=== PATIENT | male | born 1970 | race Caucasian/White ===

== ENCOUNTER 2019-05-05 11:08 | Emergency (ER) | payer OTHER, SELFPAY ==
[2019-05-05 11:17] VITALS: BP 118/82; PULSE 77; RESP 16; TEMP 36.2; O2SAT 99
[2019-05-05 11:28] VITALS: RESP 16
--- NOTE | 2019-05-05 11:48 | ED.GENADUL_ITS ---
Discharge Plan Disposition Patient Disposition: HOME Condition: Stable Discharge Details Chief Complaint: GenMedical Clinical Impression: Rectal bleeding, External hemorrhoid Primary Care Provider: Neil Montgomery ED Provider: Stephanie Lew Home Meds and New Rx's Prescriptions: Continued sertraline 50 mg tablet 50 mg PO DAILY Qty: 90 RF: 3 lidocaine HCl 3 % cream 1 applic TP QID PRN (Reason: pain) Qty: 85 RF: 1 docusate sodium [Stool Softener] 100 mg tablet 100 mg PO BID Qty: 30 RF: 1 No Action ibuprofen 200 mg Capsule 400 mg RF: 0 Discharge Instructions Instructions: Hemorrhoids (ED), Rectal Bleeding (ED), Hemorrhoidectomy (ED) Additional Instructions: Please return immediately to the emergency department if you develop any new or worsening symptoms or if you become otherwise concerned. It is extremely important that you have your procedure performed tomorrow as we discussed. You will be called with the time of procedure. Please do not eat or drink anything after midnight tonight. It is also extremely important that you call soon as possible to make an appointment to be seen in follow-up for this visit by your primary care doctor. Referrals: Nara Leal MD [ [facility] STAFF PHYSICIAN] - Neil Montgomery [Primary Care Provider] - Discharge Data Discharge Date/Time-TO BE ENTERED AT DEPARTURE: 05/05/19 13:20 Medical Decision Making Eddie Tijerina is a 49-year-old man with a history of alcohol abuse, hyperlipidemia who presented to the emergency department with rectal bleeding, apparently from long-standing hemorrhoid. Patient reporting pain at site of hemorrhoid over the past few days but bleeding has been painless. On exam patient is well and nontoxic appearing. No active rectal bleeding but bright red blood about the buttocks. 1 x 1 cm hemorrhoid, appears partially thrombosed. Concern for likely bleeding from hemorrhoid versus less likely other rectal bleeding. Plan for screening labs, IV. I discussed the patient with Dr. Nara Leal of surgery who will see the patient in the emergency department. Patient with no further bleeding in the emergency department. Patient seen by Dr. Leal of surgery, who plans hemorrhoidectomy as an outpatient tomorrow. Hemoglobin 13. Exam/history is not consistent with life-threatening active bleeding. Had a lengthy discussion with the patient regarding return to emergency department precautions, importance of outpatient follow-up with Dr. Leal for procedure tomorrow, and also with patient's PCP. Patient and his verbalized understanding the plan and were amenable. All questions were answered. Patient was discharged home with clear plan for outpatient follow-up. Medical Records Medical records reviewed: Yes I reviewed the patient's medical records. Lab Data Lab results reviewed: Yes I reviewed the patient's lab results. Labs: Laboratory Tests Range/Units 05/05/19 05/05/19 05/05/19 11:45 11:45 11:45 WBC (4.4-10.8) k/cumm 5.50 RBC (4.50-6.00) m/cumm 4.51 Hgb (13.5-17.5) g/dL 13.3 L Hct (40.0-50.0) % 39.6 L MCV (80-95) fL 87.8 MCH (27.0-33.0) pg 29.5 MCHC (32.0-36.0) g/dL 33.6 RDW (11.8-14.1) % 13.0 Plt Count (130-400) x1000/uL 253 MPV (8.0-11.0) fL 9.9 Immature Gran % 0.4 Neutrophils % 52.2 Lymphocytes % 32.5 Monocytes % 10.7 Eosinophils % 3.5 Basophils % 0.7 Absolute Neutrophils (1.2-6.7) k/cumm 2.87 Absolute Lymphocytes (1.2-3.4) k/cumm 1.79 Absolute Monocytes (0.11-0.7) k/cumm 0.59 Absolute Eosinophils (0.0-0.7) k/cumm 0.19 Absolute Basophils (0.0-0.2) k/cumm 0.04 PT (9.3-11.0) sec 9.8 INR (0.9-1.1) 1.0 Sodium (136-145) mmol/L 142 Potassium (3.5-5.1) mmol/L 3.6 Chloride (98-107) mmol/L 105 Carbon Dioxide (21.0-32.0) mmol/L 27.2 Anion Gap (3-11) mmol/L 9.8 BUN (7-18) mg/dL 15 Creatinine (0.70-1.30) mg/dL 1.14 Estimated GFR/1.73 m2 (mL/min/1.73m2) >= 60.00 Glucose (70-100) mg/dL 106 H Calcium (8.5-10.1) mg/dL 8.8 Total Bilirubin (0.2-1.0) mg/dL 0.4 AST (15-37) U/L 40 H ALT (16-63) U/L 44 Alkaline Phosphatase (46-116) U/L 66 Total Protein (6.4-8.2) g/dL 7.2 Albumin (3.4-5.0) g/dL 3.9 Patient ABO/Rh Antibody Screen Range/Units 05/05/19 11:45 WBC (4.4-10.8) k/cumm RBC (4.50-6.00) m/cumm Hgb (13.5-17.5) g/dL Hct (40.0-50.0) % MCV (80-95) fL MCH (27.0-33.0) pg MCHC (32.0-36.0) g/dL RDW (11.8-14.1) % Plt Count (130-400) x1000/uL MPV (8.0-11.0) fL Immature Gran % Neutrophils % Lymphocytes % Monocytes % Eosinophils % Basophils % Absolute Neutrophils (1.2-6.7) k/cumm Absolute Lymphocytes (1.2-3.4) k/cumm Absolute Monocytes (0.11-0.7) k/cumm Absolute Eosinophils (0.0-0.7) k/cumm Absolute Basophils (0.0-0.2) k/cumm PT (9.3-11.0) sec INR (0.9-1.1) Sodium (136-145) mmol/L Potassium (3.5-5.1) mmol/L Chloride (98-107) mmol/L Carbon Dioxide (21.0-32.0) mmol/L Anion Gap (3-11) mmol/L BUN (7-18) mg/dL Creatinine (0.70-1.30) mg/dL Estimated GFR/1.73 m2 (mL/min/1.73m2) Glucose (70-100) mg/dL Calcium (8.5-10.1) mg/dL Total Bilirubin (0.2-1.0) mg/dL AST (15-37) U/L ALT (16-63) U/L Alkaline Phosphatase (46-116) U/L Total Protein (6.4-8.2) g/dL Albumin (3.4-5.0) g/dL Patient ABO/Rh A Positive Antibody Screen Negative HPI General Mode of arrival: ambulatory . Date/Time Provider Initiated Documentation: 05/05/19 11:25 . Limitations to Documentation: no limitations . Information obtained by: patient, family, RN notes reviewed and old records reviewed . HPI Narrative: Eddie Tijerina is a 49 y/o man with history of hyperlipidemia, alcohol abuse presenting to the emergency department with rectal bleeding. Patient reports that he has had hemorrhoids since age 18. He has never had this evaluated by a physician. Patient reports he has not had rectal bleeding in the past until recent events. He reports that 2 days ago he was working outside when he had sudden onset painless bleeding apparently coming from his hemorrhoid. He states that bleeding was copious, soaked through his close, and he became very sweaty and lightheaded during the episode. Patient states I must of lost a quart of blood. Patient reports that the bleeding stopped, and he had no further bleeding yesterday. Patient reports that he was seated and eating at approximately 10 AM this morning when he felt sudden gush of blood, painless, again apparently from his hemorrhoid. Patient reports that over the past few days his hemorrhoid has been more painful than usual. Patient reports that bleeding is stopped. He has had no other bleeding. He has had no other pain. He has had mild diarrhea. No vomiting, no constipation, no rash, no weakness, no numbness. He takes no prescript and blood thinners but does take [id number] ibuprofen. Related Data Home Medications Medication Instructions Recorded Confirmed sertraline 50 mg tablet 50 mg PO DAILY #90 tab 04/18/19 05/06/19 docusate sodium 100 mg tablet 100 mg PO BID #30 tab 05/05/19 lidocaine HCl 3 % topical cream 1 applic TP QID PRN #85 gm 05/05/19 ibuprofen 400 mg 05/06/19 Previous Rx's Medication Instructions Recorded sertraline 50 mg tablet 50 mg PO DAILY #90 tab 04/18/19 docusate sodium 100 mg tablet 100 mg PO BID #30 tab 05/05/19 lidocaine HCl 3 % topical cream 1 applic TP QID PRN #85 gm 05/05/19 Allergies Allergy/AdvReac Type Severity Reaction Status Date / Time No Known Allergies Allergy Unverified 05/06/19 11:41 General Stated Complaint: GenMedical NEAL: 3 Review of Systems Review of Systems Narrative: Constitutional: denies fevers Eyes: denies eye pain ENT: denies facial pain, dental pain, sore throat Cardiovascular: denies chest pain Respiratory: denies SOB, cough GI: denies abdominal pain, vomiting, diarrhea, reports rectal bleeding : denies flank pain MSK: denies back pain, neck pain, arthralgias, myalgias Skin: denies rash Neuro: denies headaches, numbness, weakness PFSH Surgical History NEGATIVE STRESS TEST 11/02/17 Family History Mother , age 56 Cancer of neck Father , ACCIDENTAL at age 36. No problems noted. Maternal Grandfather , age 76 Stroke Heart disease Paternal Grandfather No problems noted. Son No problems noted. Daughter No problems noted. Son No problems noted. Social History Smoking/Tobacco Use Status: Current every day Tobacco Type: smokeless tobacco Smokeless tobacco user: chewing tobacco and snuff Quit status: considering quitting Second Hand Exposure: Yes Alcohol Intake: never Drug use: Never Substance use type: does not use Caregiver/Support person: Yes Household members: spouse and children Communication Needs: None Do you need help understanding health information?: Never current occupation: [employer] Pets and animals: Yes Pets and animals: cat(s) and dog(s) Sexually active: Yes Do you think of yourself as: straight/heterosexual Current gender identity: male What is your relationship status?: How often do you talk on the phone with friends or family?: once per week How often do you get together with friends or relatives?: once per week How often do you attend mandaeism or religion services?: decline to answer Do you belong to any clubs or organized social groups?: yes Panel score (0-1 are the most socially isolated patients): 2 What type of physical activity do you participate in: none Amaya/Mandaeism: Voodoo Special amaya needs: No Seatbelt use: always Helmet use: Yes Helmet use: always Drive intox or ride w/intox 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 Do you feel safe at home: Yes Do you feel safe in your relationship?: Yes Exam Narrative Exam Narrative: Constitutional: well and pzv-[id number]-xuahnlnak, pleasant, conversing normally HENT: head atraumatic/normocephalic/normal inspection, mucous membranes moist Eyes: conjunctiva normal, sclera normal, pupils 3mm b/l Neck: no stridor, normal ROM, trachea midline Resp: normal work of breathing, LCTAB Cardio: normal rate, normal rhythm, no murmur appreciated GI: abdomen soft, non-tender, non-distended, 1x1cm partially thrombosed hemorrhoid, no active bleeding Skin: warm, dry, normal color, no rash Neuro: alert, not altered, grossly non-focal, normal tone Ext: no edema, moving all extremities equally Psych: normal mood, normal affect, normal behavior Course Vital Signs Vital signs: Vital Signs Temperature 36.2 C L 05/05/19 11:17 Pulse 77 05/05/19 11:17 Respiratory Rate 16 05/05/19 11:17 Blood Pressure 118/82 05/05/19 11:17 Pulse Oximetry 99 05/05/19 11:17 Temperature 36.2 C L 05/05/19 11:17 Pulse 77 05/05/19 11:17 Respiratory Rate 16 05/05/19 11:28 Respiratory Effort 05/05/19 11:28 Respiratory Depth Normal 05/05/19 11:28 Respiratory Pattern Normal 05/05/19 11:28 Blood Pressure 118/82 05/05/19 11:17 Pulse Oximetry 99 05/05/19 11:17 Oxygen Delivery Method Room Air 05/05/19 11:17 Oxygen Flow Rate 0 05/05/19 11:17 Pain Level 6 05/05/19 11:17
[2019-05-05 12:00] LABS: Abs Immature Grans 0.02 k/cumm (0.0-0.09); Absolute Basophil Count 0.04 k/cumm (0.0-0.2); Absolute Eosinophil Count 0.19 k/cumm (0.0-0.7); Absolute Lymphocyte Count 1.79 k/cumm (1.2-3.4); Absolute Monocyte Count 0.59 k/cumm (0.11-0.7); Absolute Neutrophil Count 2.87 k/cumm (1.2-6.7); Basophils % 0.7; Eosinophils % 3.5; HCT 39.6 % (40.0-50.0); HGB 13.3 g/dL (13.5-17.5); Immature Grans % 0.4; Lymphocytes % 32.5; Mean Corp. HGB Concentration 33.6 g/dL (32.0-36.0); Mean Corpuscular Hemoglobin 29.5 pg (27.0-33.0); Mean Corpuscular Volume 87.8 fL (80-95); Mean Platelet Volume 9.9 fL (8.0-11.0); Monocytes % 10.7; Neutrophils % 52.2; Platelet Count 253 x1000/uL (130-400); RBC 4.51 m/cumm (4.50-6.00)
[2019-05-05 12:26] LABS: ALT 44 U/L (16-63); AST 40 U/L (15-37); Albumin 3.9 g/dL (3.4-5.0); Alkaline Phosphatase 66 U/L (46-116); Anion Gap 9.8 mmol/L (3-11); BUN 15 mg/dL (7-18); Bilirubin, Total 0.4 mg/dL (0.2-1.0); CO2 27.2 mmol/L (21.0-32.0); CREATININE 1.14 mg/dL (0.70-1.30); Calcium 8.8 mg/dL (8.5-10.1); Chloride 105 mmol/L (98-107); Glucose 106 mg/dL (70-100); Potassium 3.6 mmol/L (3.5-5.1); Prothrombin Time 9.8 sec (9.3-11.0); Sodium 142 mmol/L (136-145); Total Protein 7.2 g/dL (6.4-8.2)
--- NOTE | 2019-05-05 13:01 | W.SURGCON ---
Date of service: 05/05/19 Time of Service: 13:01 Assessment and Plan Assessment and plan (1) External hemorrhoid, thrombosed: Status: Acute Assessment and plan: The patient has had two episodes of significant bleeding and is at risk having further bleeding. He also had a chronic prolapsing internal hemorrhoid. I advised hemorrhoidectomy. The procedure and risks of infection, bleeding, wound healing problems, pain, recurrence discussed. If other internal hemorrhoids are present, they can be banded. He was advised this is a painful procedure but it is best to avoid narcotics postop due to risk of constipation. Topical lidocaine has been sent in and he is also advised to do sitz baths. He will need at least this week off work and should not lift more than 15 pounds for two weeks postop. History of Present Illness Narrative: This patient presented to the emergency department today with complaints of spontaneous bleeding from hemorrhoids. He had a significant episode of bleeding on Sunday while he was lifting heavy firewood. He estimates he lost about 3 cups of blood. He treated this with vyam-jlx-ulrczlp medications. Today when he was sitting down for lunch he again had an episode of bleeding. He also is having discomfort at the site. He has a long-term history of what sounds to be a prolapsed internal hemorrhoid in the same location. He denies significant change in his bowel habits. He has not had prior surgery Review of Systems Constitutional Constitutional: Denies fatigue and Denies headache(s) Eyes Eyes: Denies change in vision ENT Ears, Nose, Mouth, and Throat: Denies headache(s) and Denies neck mass Cardiovascular Cardiovascular: Denies chest pain, Denies edema, Denies palpitations and Denies dyspnea Respiratory Respiratory: Denies cough, Denies dyspnea and Denies wheezing Gastrointestinal Gastrointestinal: Denies abdominal pain Genitourinary Genitourinary: Denies dysuria Musculoskeletal Musculoskeletal: Denies joint swelling Integumentary/Breasts Skin/Breast: Denies new lesions and Denies rash Neurologic Neurologic: Denies confusion, Denies headache(s) and Denies focal weakness Psychiatric Psychiatric: Reports system reviewed and no additional complaints, except as docu and Denies confusion Endocrine Endocrine: Denies fatigue and Denies palpitations Hematologic/Lymphatic Hematologic/Lymphatic: Denies easy bleeding and Denies lymphadenopathy Allergic/Immunologic Allergic/Immunologic: Denies wheezing PFSH Surgical History NEGATIVE STRESS TEST 11/02/17 Family History Mother , age 56 Cancer of neck Father , ACCIDENTAL at age 36. No problems noted. Maternal Grandfather , age 76 Stroke Heart disease Paternal Grandfather No problems noted. Son No problems noted. Daughter No problems noted. Son No problems noted. Social History Smoking/Tobacco Use Status: Former Tobacco Use Smokeless tobacco user: chewing tobacco and snuff Quit status: considering quitting Second Hand Exposure: Yes Alcohol Intake: never Drug use: Never Substance use type: does not use Caregiver/Support person: Yes Household members: spouse and children Communication Needs: None Do you need help understanding health information?: Never current occupation: [employer] Pets and animals: Yes Pets and animals: cat(s) and dog(s) Sexually active: Yes Do you think of yourself as: straight/heterosexual Current gender identity: male What is your relationship status?: How often do you talk on the phone with friends or family?: once per week How often do you get together with friends or relatives?: once per week How often do you attend mosque or synagogue services?: decline to answer Do you belong to any clubs or organized social groups?: yes Panel score (0-1 are the most socially isolated patients): 2 What type of physical activity do you participate in: none Amaya/Evangelical: Mandaen Special amaya needs: No Seatbelt use: always Helmet use: Yes Helmet use: always Drive intox or ride w/intox high lift driver: No Do you feel safe at home: Yes Do you feel safe in your relationship?: Yes Exam Const General: healthy appearing and not in acute distress Nutritional Appearance: well nourished Orientation: oriented x3 HENMT Head: normal to inspection Eyes Sclera: sclerae normal Pupils: PERRL Neck Neck: no lymphadenopathy Thyroid: thyroid normal Resp Effort & Inspection: normal respiratory effort Auscultation: clear to auscultation bilaterally and no wheezes Cardio Rate: regular rate Rhythm: regular rhythm GI Inspection: non-distended Palpation: soft, no hepatosplenomegaly, no hernias and nontender Other: Perianal exam shows thrombosed external hemorrhoid in right lateral location with overlying skin necrosis. About 3cm in size No active bleeding Also associated with prolapsed internal hemorrhoid Skin General skin exam: no rashes or lesions noted Neuro General: alert Cognition: normal cognition Extrem General: normal to inspection Psych Affect: normal affect Attitude: cooperative Results Last Vital Signs Temp 97.2 F L 05/05/19 11:17 Pulse 77 05/05/19 11:17 Resp 16 05/05/19 11:28 BP 118/82 05/05/19 11:17 Pulse Ox 99 05/05/19 11:17 Labs Result diagrams: 05/05/19 11:45 05/05/19 11:45 Labs: Laboratory Results - last 24 hr 05/05/19 05/05/19 05/05/19 11:45 11:45 11:45 WBC 5.50 RBC 4.51 Hgb 13.3 L Hct 39.6 L MCV 87.8 MCH 29.5 MCHC 33.6 RDW 13.0 Plt Count 253 MPV 9.9 Immature Gran % 0.4 Neutrophils % 52.2 Lymphocytes % 32.5 Monocytes % 10.7 Eosinophils % 3.5 Basophils % 0.7 Absolute Neutrophils 2.87 Absolute Lymphocytes 1.79 Absolute Monocytes 0.59 Absolute Eosinophils 0.19 Absolute Basophils 0.04 PT 9.8 INR 1.0 Sodium 142 Potassium 3.6 Chloride 105 Carbon Dioxide 27.2 Anion Gap 9.8 BUN 15 Creatinine 1.14 Estimated GFR/1.73 m2 >= 60.00 Glucose 106 H Calcium 8.8 Total Bilirubin 0.4 AST 40 H ALT 44 Alkaline Phosphatase 66 Total Protein 7.2 Albumin 3.9 Patient ABO/Rh Antibody Screen 05/05/19 11:45 WBC RBC Hgb Hct MCV MCH MCHC RDW Plt Count MPV Immature Gran % Neutrophils % Lymphocytes % Monocytes % Eosinophils % Basophils % Absolute Neutrophils Absolute Lymphocytes Absolute Monocytes Absolute Eosinophils Absolute Basophils PT INR Sodium Potassium Chloride Carbon Dioxide Anion Gap BUN Creatinine Estimated GFR/1.73 m2 Glucose Calcium Total Bilirubin AST ALT Alkaline Phosphatase Total Protein Albumin Patient ABO/Rh A Positive Antibody Screen Negative
[2019-05-05 13:24] VITALS: BP 118/82; PULSE 77; RESP 16; TEMP 36.2; O2SAT 99
== END 2019-05-05 13:20 | disposition home or self-care (01) ==
PROVIDERS: Emergency Provider Student in an Organized Health Care Education/Training Program; PCP Family Medicine
DX: K92.2 Gastrointestinal hemorrhage, unspecified (principal); K64.8 Other hemorrhoids
CPT/HCPCS: 36415; 80053; 86850; 86900; 86901; 99254; 99283; 85025; 85610

== ENCOUNTER 2019-05-06 11:27 | Day surgery (SDC) | payer OTHER, SELFPAY ==
[2019-05-06 11:35] VITALS: BP 128/82; PULSE 68; RESP 16; TEMP 36.6; O2SAT 99
--- NOTE | 2019-05-06 13:47 | NUR.NOTE ---
Pt surgical information intake started. Pt reported having had smokeless tobacco around 1100am today. MD notified, who discussed with anesthesia. It was decided the surgery would be cancelled for today and MD office would call Pt to reschedule procedure.
== END 2019-05-06 11:47 ==
PROVIDERS: PCP Family Medicine; Visit Provider Surgery
DX: K64.8 Other hemorrhoids (principal); Z53.01 Procedure and treatment not carried out due to patient smoking

== ENCOUNTER 2019-05-08 10:54 | Day surgery (SDC) | payer OTHER, SELFPAY ==
[2019-05-08] VITALS (8 sets, daily range): BP systolic 84–135; BP diastolic 53–88; PULSE 50–75; RESP 14–20; TEMP 35.8–36.6; O2SAT 95–100
[2019-05-08] MEDS: Lactated Ringers 1,000 ML 80 ML IV ×2 (11:37→15:35)
--- NOTE | 2019-05-08 13:05 | HEM_PTH ---
PATIENT: Eddie Tijerina LOC: [facility] U#:[id number] AGE/SX: 49/M ROOM: RE05/08/[address]: Nara Leal MD : 1970 BED: DIS: 05/08/2019 SPEC #: [id number] RECD: 05/08/19 18:00 STATUS: [facility] REQ #: [id number] JELENA: 05/08/19 13:[address]: Nara Leal DEPT: Surgical Specimen RECD BY: Funmilayo Day ENTERED: 05/08/19 18:01 SP TYPE: Hem OTHR DR: Neil Montgomery MD Tissues: 1 - HEMORRHOIDS Procedures: GROSS AND MICRO LEVEL 3 Comments: [id number]
[2019-05-08] MEDS: Gelatin SPONGE 12-7 MM PKT 1 EACH TP (13:11)
--- NOTE | 2019-05-08 13:18 | W.PM.DSUDISC ---
Discharge Plan Disposition Patient Disposition: HOME Condition: Good Discharge Details Reason For Visit: HEMORRHOIDS Attending Provider: Nara Leal Primary Care Provider: Neil Montgomery Home Meds and New Rx's Prescriptions: Continued sertraline 50 mg tablet 50 mg PO DAILY Qty: 90 RF: 3 lidocaine HCl 3 % cream 1 applic TP QID PRN (Reason: pain) Qty: 85 RF: 1 docusate sodium [Stool Softener] 100 mg tablet 100 mg PO BID Qty: 30 RF: 1 ibuprofen 200 mg Capsule 400 mg RF: 0 Discharge Instructions Additional Instructions: The right sided hemorrhoid was removed surgically and left sided internal hemorrhoids were banded. This causes a pressure feeling that should improve in the next day or so. A small foam pad was inserted and will pass on its own. This may not be obvious. A small amount of bleeding is expected, wear a pad in underwear as needed. Do sitz baths twice a day and as needed for discomfort Call for any concerns including fever, increased pain, bleeding. Do not lift more than 15 pounds for two weeks. Walking and stairs are fine. Do not drive if on narcotic pain meds or if limited by pain. May use Tylenol alternating with ibuprofen for pain control. Ice is also an option. The maximum dose for Tylenol is 4000 mg/day. May use ibuprofen 800 mg every 8 hours as needed. If concerned about constipation, you may use a stool softener or milk of magnesia. Referrals: Nara Leal MD [ [facility] STAFF PHYSICIAN] - (10-14 days) Activity:: DO not lift more than 15# Shower/Bathe:: 24 hours Diet:: As Tolerated Discharge Orders Discharge Orders: Discharge Order (Routine); Ordered 05/08/19 Ordered By: Nara Leal DS: Diagnosis Discharge Diagnosis (1) External hemorrhoid, thrombosed: Status: Acute (2) Internal hemorrhoids: Status: Acute
--- NOTE | 2019-05-08 16:33 | W.PM.PROGNOT ---
Date of Service Date of service: 05/08/19 Time of Service: 16:33 Subjective Subjective Interval history since last seen: pt was getting up to go to the bathroom and passed out - he passed out w/ the Rn who- helped him to ground. He didn't have any real LOC. denies CP or SOB. He has a hx of anxiety and vasovagal episodes. His legs are awake adn working well. BP was ok. He denies any pain or injury to head/neck/back/ext's. No bleeding from Sx site. had some trouble urinating- but was able to pass urine. pt reassured this was nl. Pt also c/o pressure sensation in rectum. He did receive some toradol for this and feels better. Pt was reassured that this was nl. Muscle spasms are very common after this surgery- the best treatment is to soak in a tub of plan warm water. we did review expectations following surgery and home cares. He has ibuprofen for pain and encouraged him to soak in warm water. F/u as indicated Home Care Instructions after Rectal Surgery Pain/muscle spasms are normal after surgery. Use the prescribed pain medications, valium and topical creams. Do not use any other creams unless specifically prescribed for you. It takes oral pain meds an hour to take effect. Do not get behind on your pain meds. You can alternate with NSAID?s (ibuprofen 800mg) every 8 hours. Take with food; do not take if you have ulcers or sensitivity to aspirin. Constipation occurs with the use of narcotic pain medications. The first bowel movement after surgery will be painful. Do not let yourself get constipated. Stay on a stool softener while you are on the narcotics. It is recommended that you use a fiber supplement (Metamucil, Citrucel) daily (1 tablespoon in 8 oz of water). If you do not have a bowel movement daily, use Milk of Magnesia or Miralax. It is normal to have bleeding or drainage after rectal surgery; especially when you move your bowels. Use a sanitary napkin to collect the discharge. If you are passing large clots or having to change the pad more than every 4 hours, call the clinic or go to the ER. You may experience spasms in the rectal muscles. This is normal after surgery and last for about two weeks. They can become more intense with bowel movements. You can also try sitz bathes (sitting in a bath tub of PLAIN lukewarm water; soap can add to rectal irritation). Or you can try ice packs. You will have to see what works best for you. It is ok to shower. Avoid soap on the surgical area. Use a pillow to sit on. Follow a mild bland diet. Avoid alcohol, spicy food, citrus, and tomatoes. Avoid strenuous activity (running, jogging, and power walking, swimming, weight lifting) for two weeks. No lifting over 5 pounds for 2 weeks[address] if taking narcotic pain medications, or cannot turn or twist your body without hesitation. You can return to work when you are no longer taking the pain meds, can sit comfortably for 8 hours or when the weight restrictions are lifted. (Usually after two weeks time). Urinary retention is common. Sit in a warm tub to try to relax the bladder. If you are unable to urinate after 8 hours, call the office or go to the ER. If you have packing in place, follow the directions for doing the dressing changes. If you have stitches in place, they will fall out in about 7-10 days. They may develop an ?odor?. Follow up in 2 weeks- call the office for an appointment. Objective Objective Clinical Data: Vital Signs Temperature 36.1 C L 05/08/19 15:05 Pulse 70 05/08/19 15:05 Pulse Rhythm Regular 05/08/19 11:09 Respiratory Rate 18 05/08/19 15:05 Respiratory Depth Normal 05/08/19 11:09 Blood Pressure 125/81 05/08/19 15:05 Pulse Oximetry 98 05/08/19 15:05 Respiratory End-tidal CO2 28 05/08/19 13:37 Oxygen Delivery Method Room Air 05/08/19 15:05 Oxygen Flow Rate 2 05/08/19 13:37 Pain Level 3 05/08/19 15:05 Intake & Output 05/07/19 05/08/19 05/08/19 23:59 11:59 23:59 Intake Total 1180 / 1180 Balance 1180 / 1180 Weight 81.8 kg Intake: IV 1000 / 1000 Oral 180 / 180 Other: Emesis Description None
[2019-05-08] MEDS: Ketorolac 30 MG/ML VIAL IVP (16:39)
--- NOTE | 2019-05-09 09:56 | ROE_ITS ---
DATE OF PROCEDURE: May 08, 2019 PREOPERATIVE DIAGNOSIS: 1. Thrombosed external hemorrhoid. POSTOPERATIVE DIAGNOSIS: 1. Thrombosed external hemorrhoid. 2. Grade III internal hemorrhoids. PROCEDURE: 1. External/internal hemorrhoidectomy. 2. Internal hemorrhoid banding. SURGEON: Nara Leal M.D. ANESTHESIA: Spinal and Exparel. INDICATIONS: This is a 49 year old man who reports problem with bleeding hemorrhoids for thirty years. He had a significant episode about five days ago after lifting heavy firewood. He had spontaneous bleeding of about three cups of blood. He had a second episode of spontaneous bleeding while at work a few days later. Examination reveals a thrombosed external hemorrhoid continuous with a prominent and prolapsed internal hemorrhoid. There is skin necrosis related to the external hemorrhoid. PROCEDURE: The patient had a spinal anesthetic placed and then was positioned into the prone position. His buttocks were taped for better exposure. The perianal region was prepped with Betadine. The prominent hemorrhoidal bundle was in the right lateral position. Anoscopy was performed, which also showed prominent internal hemorrhoids in the left lateral location. A #2-0 Vicryl stitch was placed at the apex of the right lateral hemorrhoidal bundle. An elliptical incision was made around the external component of the hemorrhoid and a hemostat used to elevate the hemorrhoidal tissue up off the sphincter complex. Cautery was then used to remove the remainder of the hemorrhoidal bundle up to the suture. This was sent as a specimen. The incision was closed by running the #2-0 Vicryl in a locking fashion. There was good hemostasis. I then placed two bands on the prominent left lateral internal hemorrhoids with good result. Exparel was injected using a total of 20 cc's. A small Gelfoam was inserted for aid with hemostasis. There was no bleeding at the time. The area was then cleaned and mesh panties with a Dacia-pad applied. He tolerated the procedure well and was stable to recovery. cc: Neil Montgomery M.D.
== END 2019-05-08 17:05 | disposition home or self-care (01) ==
PROVIDERS: PCP Family Medicine; Visit Provider Surgery
PROC: (CPT 46255; principal; 2019-05-08 12:00)
DX: K64.5 Perianal venous thrombosis (principal); K64.2 Third degree hemorrhoids
CPT/HCPCS: 46255; NC; 88304; J1885; J2250

== ENCOUNTER 2020-04-23 10:37 | Outpatient (REF) | payer OTHER, SELFPAY ==
[2020-04-23 13:12] LABS: Calculated LDL 122 mg/dL (<100); Cholesterol 201 mg/dL (<200); HDL Cholesterol 56 mg/dL (40-60); Triglyceride 119 mg/dL (<150)
[2020-04-23 22:31] LABS: PSA, Screening 0.6 ng/mL (0.0-3.5)
== END 2020-04-23 10:57 ==
LOC: LBN 10:37
PROVIDERS: PCP Family Medicine; Visit Provider Family Medicine
DX: E78.5 Hyperlipidemia, unspecified (principal); Z12.5 Encounter for screening for malignant neoplasm of prostate
CPT/HCPCS: 80061; 84153

== ENCOUNTER 2020-07-12 02:07 | Outpatient (CLI) | payer OTHER, SELFPAY ==
[2020-07-13 15:21] LABS: COVID-19 RT-PCR UVMMC Result Negative (Negative)
== END 2020-07-12 02:27 ==
PROVIDERS: Surgery; PCP Family Medicine; Visit Provider Nurse Practitioner
DX: Z11.59 Encounter for screening for other viral diseases (principal); Z01.818 Encounter for other preprocedural examination
CPT/HCPCS: U0003

== ENCOUNTER 2020-07-15 02:24 | Outpatient (CLI) | payer OTHER, SELFPAY ==
[2020-07-16 14:49] LABS: COVID-19 RT-PCR UVMMC Result Negative (Negative)
== END 2020-07-15 02:44 ==
PROVIDERS: PCP Family Medicine; Visit Provider Surgery
DX: Z11.59 Encounter for screening for other viral diseases (principal); Z01.818 Encounter for other preprocedural examination
CPT/HCPCS: U0003

== ENCOUNTER 2020-07-19 12:08 | Day surgery (SDC) | payer OTHER, SELFPAY ==
--- NOTE | 2020-07-19 07:14 | W.COLOREPORT ---
Date of service: 07/19/20 Time of Service: 13:00 Colonoscopy Report Date of procedure: 07/19/20 Pre-op diagnosis general: Colon Cancer Screening Post-op diagnosis procedure note: other (polyps) Procedure: Colonoscopy with polypectomy Surgeon: Lexi Bond Anesthesia proc note operative: other (General/ASA 2/Jalen Gomez CRNA/ James Palafox CRNA) Estimated blood loss (mL): 3 Pathology: other (cecal polyp and transverse polyp) Complications: None Disposition: same day Indications: The patient is here for Colonoscopy pre-op. He has no family history of colon cancer. He has not had any bowel habit changes. -Discussed colonoscopy bowel prep as well as the procedure. Discussed possible complications of the procedure to include bleeding, pain, perforation, missed small lesion/polyp, sore throat, aspiration and adverse reaction to the medications. Questions were answered to patient?s satisfaction. No guarantees were implied or given. Prep: Miralax/Dulcolax Procedure Start Time: 13:00 Procedure End Time: 13:30 Retraction Time: 22 minutes Findings: 2 small polyps Procedure Description: After informed consent was obtained the patient was taken to the procedure room and placed in a left decubitous position. Monitors were applied and a time out was done. The patients name, date of , procedure, allergies to medications and metal in their body was reviewed. The patient was then sedated. Once sedated and comfortable a rectal exam was done. External exam was normal. Internal exam revealed a normal sphincter tone and no palpable masses. The prostate felt smooth and slightly enlarged. The scope was then introduced and retro-flexed. No internal hemorrhoids were identified. The scope was then advanced to the cecum without difficulty. The ileocecal valve and appendiceal orifice were identified. The prep was good. The scope was then slowly retracted over 22 minutes back into the rectum. Polyps were removed with cold forceps in the cecum and transverse colon. The scope was removed and the patient was woken up and taken back to Same day surgery in stable condition. The patient tolerated the procedure well and there were no immediate complications. Follow up: The patient should follow up in 3-5 years unless they develop changes in bowel habits or other new gastrointestinal complaints.
--- NOTE | 2020-07-19 07:15 | W.PM.DSUDISC ---
Discharge Plan Disposition Patient Disposition: HOME Condition: Improving Discharge Details Reason For Visit: Colonoscopy Attending Provider: Lexi Bond Primary Care Provider: Neil Montgomery Home Meds and New Rx's Prescriptions: Continued terbinafine HCl 250 mg tablet 250 mg PO DAILY Qty: 28 RF: 1 sertraline 50 mg tablet 50 mg PO DAILY Qty: 90 RF: 3 ibuprofen 800 mg tablet 800 mg PO Q8H PRN (Reason: pain) Qty: 90 RF: 1 Discontinued polyethylene glycol 3350 17 gram/dose powder 238 g PO ONCE Qty: 238 RF: 0 bisacodyl [Dulcolax (bisacodyl)] 5 mg tablet,delayed release (DR/EC) 5 mg PO ONCE Qty: 4 RF: 0 Discharge Instructions Instructions: Colorectal Polyps (DC) Additional Instructions: Findings: 2 polyps Follow up: 3-5 years Please call if you develop: fevers >101.5 Nausea or Vomiting Abdominal pain that is not transient DAY SURGERY UNIT POST ENDOSCOPY INSTRUCTIONS 1. Because there will be medication in your system for the next 24 hours, you may feel a little sleepy. Your coordination will be affected. Therefore: a. Do not drive or operate dangerous equipment for 24 hours. b. Do not drink alcohol beverages for 24 hours (not even beer). c. Plan to go home and rest for the day. 2. Generally there are no restrictions on your activity after a day or so has gone by, but you may feel a bit fatigued for a few days. 3 After you arrive home you may have a light meal and return to a normal diet as you can tolerate it without feeling sick to your stomach. 4. After surgery, you may feel pain or discomfort. This should be only transient, but if it persists please contact your doctor. 5. If there are any questions regarding the findings of your procedure, please feel free to contact your doctor. 6. If you are unable to contact your doctor with a problem, contact the hospital at [phone]. 7. Continue all your regular medications unless directed otherwise. I understand the above instructions and have no questions. Signature of Patient or Responsible Adult Escort Date/Time Name of Responsible Adult Escort Signature of Nurse Date/Time Activity:: Activity as Tolerated Diet:: As Tolerated Discharge Orders Discharge Orders: Discharge Order (Routine); Ordered 07/19/20 Ordered By: eLxi Bond
[2020-07-19 12:31] VITALS: BP 118/81; PULSE 62; RESP 16; TEMP 36.9; O2SAT 96
[2020-07-19] MEDS: Lactated Ringers 1,000 ML 80 ML IV (12:48)
--- NOTE | 2020-07-19 13:11 | BOWEL_PTH ---
PATIENT: Eddie Tijerina LOC: [facility] U#:[id number] AGE/SX: 50/M ROOM: RE07/19/[address]: Lexi Bond MD : [id number] BED: DIS: 07/19/2020 SPEC #: [id number] RECD: 07/19/20 16:18 STATUS: MARION REQ #: [id number] JELENA: 07/19/20 13:[address]: Lexi Bond DEPT: Surgical Specimen RECD BY: Funmilayo Day ENTERED: 07/19/20 16:18 SP TYPE: Bowel OTHR DR: Neil Montgomery MD Tissues: 1 - BIOPSY BOWEL 2 - BIOPSY BOWEL Procedures: GROSS AND MICRO LEVEL 4 Comments: [id number]
[2020-07-19 14:08] VITALS: BP 118/86; PULSE 62; RESP 16; TEMP 36.6; O2SAT 97
== END 2020-07-19 14:42 | disposition home or self-care (01) ==
LOC: SUR 12:09
PROVIDERS: PCP Family Medicine; Visit Provider Surgery
PROC: 0DJD8ZZ Inspection of Lower Intestinal Tract, Via Natural or Artificial Opening Endoscopic (ICD-10-PCS; CPT 45378; principal; 2020-07-19 13:30)
DX: Z12.11 Encounter for screening for malignant neoplasm of colon (principal); D12.0 Benign neoplasm of cecum; D12.3 Benign neoplasm of transverse colon
CPT/HCPCS: 45380; 88305

== ENCOUNTER 2020-10-06 18:50 | Outpatient (REF) | payer OTHER, SELFPAY ==
[2020-10-08 12:52] LABS: COVID-19 RT-PCR UVMMC Result Negative (Negative)
== END 2020-10-06 18:51 | disposition home or self-care (01) ==
LOC: LBN 18:50
PROVIDERS: PCP Family Medicine; Visit Provider Nurse Practitioner Family
DX: Z20.822 Contact with and (suspected) exposure to COVID-19 (principal)
CPT/HCPCS: U0003

== ENCOUNTER 2023-08-21 03:38 | Outpatient (CLI) | payer OTHER, SELFPAY ==
[2023-08-21 08:15] LABS: Calculated LDL 148 mg/dL (<100); Cholesterol 223 mg/dL (<200); Glucose 103 mg/dL (74-106); HDL Cholesterol 60 mg/dL (40-60); Triglyceride 75 mg/dL (<150)
[2023-08-21 19:05] LABS: PSA, Screening 0.7 ng/mL (<=3.5)
== END 2023-08-21 03:39 | disposition home or self-care (01) ==
LOC: LBO 03:38
PROVIDERS: PCP Family Medicine; Visit Provider Family Medicine
DX: E78.5 Hyperlipidemia, unspecified (principal); R73.9 Hyperglycemia, unspecified; Z12.5 Encounter for screening for malignant neoplasm of prostate
CPT/HCPCS: 36415; 80061; 82947; 84153

== ENCOUNTER 2025-02-26 02:46 | Outpatient (CLI) | payer OTHER, SELFPAY ==
[2025-02-26 07:51] LABS: Calculated LDL 137 mg/dL (<100); Cholesterol 213 mg/dL (<200); HDL Cholesterol 64 mg/dL (>or=40); Triglyceride 64 mg/dL (<150)
== END 2025-02-26 02:47 | disposition home or self-care (01) ==
PROVIDERS: PCP Family Medicine; Visit Provider Family Medicine
DX: Z13.220 Encounter for screening for lipoid disorders (principal)
CPT/HCPCS: 36415; 80061